=== PATIENT | male | born 1950 | race Caucasian/White ===

== ENCOUNTER 2016-02-16 00:08 | Inpatient (IN) | payer MEDICAID ==
[~2016-02-16] VITALS: Ht 177.8 cm; Wt 75.3 kg
[2016-02-16] VITALS (42 sets, daily range): BP systolic 133–186; BP diastolic 70–107
[2016-02-16] MEDS ORDERED: IV SET PRIMARY PUMP SET 1 EA INFUS.SET MC ONE (00:23)
[2016-02-16] MEDS ORDERED: NTG 50 MG/D5W250 ML BOTTL 250 ML IV ONE ×2 (00:23→01:00)
[2016-02-16 00:55] LABS: BASOPHILS % (AUTO) 0.3 % (0.0-2.0); DIFF TOTAL % 100 %; EOSINOPHILS # (AUTO) 0.3 /CMM (0.0-0.7); EOSINOPHILS % (AUTO) 2.6 % (0.0-6.0); HEMATOCRIT 26 % (39-51); HEMOGLOBIN 8.5 g/dL (13.5-17.5); LYMPHOCYTES # (AUTO) 1.6 /CMM (0.8-4.8); LYMPHOCYTES % (AUTO) 16.9 % (20.0-44.0); MEAN CORPUSCULAR HEMOGLOBIN 30 PG (26.0-33.0); MEAN CORPUSCULAR HGB CONC 33 g/dl (31.0-36.0); MEAN CORPUSCULAR VOLUME 92 fL (80-96); MONOCYTES # (AUTO) 0.6 /CMM (0.1-1.30); MONOCYTES % (AUTO) 6.3 % (2.0-12.0); NEUTROPHILS # (AUTO) 7.2 /CMM (1.8-8.9); NEUTROPHILS % (AUTO) 73.9 % (43.0-81.0); PLATELET COUNT (AUTO) 269 /CMM (150-450); RED BLOOD CELL COUNT(AUTO) 2.82 MIL/uL (4.5-6.0); WHITE BLOOD COUNT (AUTO) 9.7 K/uL (4.3-11.0)
[2016-02-16 01:09] LABS: INR 1.09 (0.87-1.13); PROTHROMBIN TIME 11.8 SECS (9.5-12.7)
[2016-02-16 01:11] LABS: LACTIC ACID 0.8 mmol/L (0.4-2.0)
[2016-02-16 01:13] LABS: TROPONIN I < 0.017 ng/mL (0.00-0.056)
[2016-02-16 01:17] LABS: ALANINE AMINOTRANSFERASE 20 U/L (12-78); ALBUMIN 3.6 g/dL (3.4-5.0); ANION GAP 18 (5-14); ASPARTATE AMINOTRANSFERASE 8 U/L (15-37); BILIRUBIN,DIRECT 0.1 mg/dL (0.0-0.2); BILIRUBIN,TOTAL 0.4 mg/dL (0.2-1.0); CARBON DIOXIDE 30 mmol/L (21-32); CHLORIDE 104 mmol/L (98-107); GFR 3 mL/min (>60); GLUCOSE 118 mg/dL (74-106); INDIRECT BILIRUBIN 0.3 mg/dL (0.0-1.1); POTASSIUM 5.2 mmol/L (3.5-5.1); SODIUM SERUM 146 mmol/L (136-145); TOTAL PROTEIN, SERUM 7.7 g/dL (6.4-8.2)
[2016-02-16] MEDS ORDERED: FUROSEMIDE 40 MG/4 ML VIAL ONE (01:22)
[2016-02-16 01:29] LABS: CREATININE 14.4 mg/dL (0.6-1.3); UREA NITROGEN, BLOOD 107 mg/dL (7-18)
[2016-02-16] MEDS ORDERED: FUROSEMIDE 40 MG/4 ML VIAL IV ONE (01:30)
[2016-02-16] MEDS ORDERED: ZOLPIDEM TARTRATE 5 MG TABLET PO PRN (02:30)
[2016-02-16] MEDS ORDERED: Z GUARD REMEDY 2 OZ OINT TP PRN (02:30)
[2016-02-16] MEDS ORDERED: ACETAMINOPHEN 325 MG TABLET PO PRN (02:30)
[2016-02-16] MEDS ORDERED: MORPHINE SULFATE INJ 2 MG/ML DISP.SYRIN IV PRN (02:30)
[2016-02-16] MEDS ORDERED: ONDANSETRON HCL/PF 4 MG/2 ML VIAL IVP PRN (02:30)
[2016-02-16] MEDS ORDERED: MAGNESIUM HYDROXIDE 30 ML UDC PO PRN (02:30)
[2016-02-16] MEDS ORDERED: MAG HYDROX/AL HYDROX/SIMETH 30 ML UDC PO PRN (02:30)
[2016-02-16] MEDS ORDERED: HYDROCODONE/APAP 5/325MG 1 EACH TABLET PO PRN (02:30)
[2016-02-16] MEDS ORDERED: NTG 50 MG/D5W250 ML BOTTL 250 ML IV PRN ×2 (02:30→04:30)
[2016-02-16 02:51] LABS: ABG BASE EXCESS -4.1 mmol/L; ABG HCO3 21.6 mmol/L; ABG PCO2 42.5 mmHg (35.0-45.0); ABG PH 7.324 (7.350-7.450); ABG PO2 226.5 mmHg (75.0-100.0); ABG TOTAL HEMOGLOBIN 7.6 G/dL (13.5-18.0); ALLEN TEST Pass; AaDO2 82.2 mmHg
[2016-02-16] MEDS ORDERED: ACETAMINOPHEN 325 MG TABLET ONE (04:37)
[2016-02-16 05:09] LABS: BASOPHILS % (AUTO) 0.3 % (0.0-2.0); DIFF TOTAL % 100 %; EOSINOPHILS # (AUTO) 0.1 /CMM (0.0-0.7); EOSINOPHILS % (AUTO) 1.4 % (0.0-6.0); HEMATOCRIT 23 % (39-51); HEMOGLOBIN 7.5 g/dL (13.5-17.5); LYMPHOCYTES # (AUTO) 0.8 /CMM (0.8-4.8); LYMPHOCYTES % (AUTO) 8.7 % (20.0-44.0); MEAN CORPUSCULAR HEMOGLOBIN 30 PG (26.0-33.0); MEAN CORPUSCULAR HGB CONC 33 g/dl (31.0-36.0); MEAN CORPUSCULAR VOLUME 90 fL (80-96); MONOCYTES # (AUTO) 0.5 /CMM (0.1-1.30); MONOCYTES % (AUTO) 5.6 % (2.0-12.0); PLATELET COUNT (AUTO) 204 /CMM (150-450); RED BLOOD CELL COUNT(AUTO) 2.51 MIL/uL (4.5-6.0); WHITE BLOOD COUNT (AUTO) 9.5 K/uL (4.3-11.0)
[2016-02-16 05:17] LABS: ALBUMIN 3.2 g/dL (3.4-5.0); BILIRUBIN,TOTAL 0.3 mg/dL (0.2-1.0); PHOSPHORUS 7.2 mg/dL (2.5-4.9); TOTAL PROTEIN, SERUM 6.9 g/dL (6.4-8.2)
[2016-02-16 05:32] LABS: KETONES,URINE NEGATIVE (NEGATIVE); LEUKOCYTE ESTERASE ,URINE NEGATIVE (NEGATIVE)
[2016-02-16 05:37] LABS: CREATININE 14.3 mg/dL (0.6-1.3); POTASSIUM 6.7 mmol/L (3.5-5.1)
[2016-02-16 05:41] LABS: ADD UA MICROSCOPIC YES
[2016-02-16 05:44] LABS: ADD URINE CULTURE NO; WBC,URINE 0-2 /HPF (0-3)
[2016-02-16] MEDS: PANTOPRAZOLE 40 MG VIAL IV SCH (08:23)
[2016-02-16] MEDS ORDERED: CELLULOSE,OXIDIZED 1 EACH EACH MC ONE (08:30)
[2016-02-16] MEDS ORDERED: FUROSEMIDE 40 MG/4 ML VIAL IV SCH (09:00)
[2016-02-16] MEDS: hydrALAZINE HCL 25 MG TABLET PO SCH ×3 (11:10→21:23)
[2016-02-16] MEDS: VIT B CMPLX 3/FA/VIT C/BIOTIN 1 TAB TABLET PO SCH (11:10)
[2016-02-16] MEDS ORDERED: EPOETIN ALFA (10,000 UNIT) 10,000 UNIT/ML VIAL SQ ONE (12:00)
[2016-02-16] MEDS: AMLODIPINE BESYLATE 10 MG TABLET PO SCH (14:36)
[2016-02-17] VITALS: BP 159/87
[2016-02-17 04:00] VITALS: BP 154/82
[2016-02-17] MEDS: hydrALAZINE HCL 25 MG TABLET PO SCH ×2 (05:00→12:19)
[2016-02-17 05:36] LABS: BASOPHILS % (AUTO) 0.4 % (0.0-2.0); DIFF TOTAL % 100 %; EOSINOPHILS # (AUTO) 0.2 /CMM (0.0-0.7); EOSINOPHILS % (AUTO) 2.2 % (0.0-6.0); HEMATOCRIT 24 % (39-51); LYMPHOCYTES % (AUTO) 13.6 % (20.0-44.0); MEAN CORPUSCULAR HEMOGLOBIN 31 PG (26.0-33.0); MEAN CORPUSCULAR HGB CONC 34 g/dl (31.0-36.0); MEAN CORPUSCULAR VOLUME 91 fL (80-96); MONOCYTES # (AUTO) 0.6 /CMM (0.1-1.30); NEUTROPHILS # (AUTO) 5.7 /CMM (1.8-8.9); NEUTROPHILS % (AUTO) 75.8 % (43.0-81.0); PLATELET COUNT (AUTO) 215 /CMM (150-450); RED BLOOD CELL COUNT(AUTO) 2.63 MIL/uL (4.5-6.0); WHITE BLOOD COUNT (AUTO) 7.5 K/uL (4.3-11.0)
[2016-02-17 05:43] LABS: PHOSPHORUS 6.8 mg/dL (2.5-4.9); POTASSIUM 4.8 mmol/L (3.5-5.1)
[2016-02-17 05:44] LABS: CREATININE 10.7 mg/dL (0.6-1.3)
[2016-02-17 08:00] VITALS: BP 150/73
[2016-02-17] MEDS: PANTOPRAZOLE 40 MG VIAL IV SCH (08:49)
[2016-02-17] MEDS: VIT B CMPLX 3/FA/VIT C/BIOTIN 1 TAB TABLET PO SCH (08:49)
[2016-02-17] MEDS: AMLODIPINE BESYLATE 10 MG TABLET PO SCH (08:50)
[2016-02-17 12:19] VITALS: BP 156/78
[2016-02-17] MEDS ORDERED: SEVELAMER CARBONATE 800 MG TABLET PO SCH (13:00)
== END 2016-02-17 16:20 | disposition home or self-care (01) | DRG 194 ==
LOC: ER 00:10 → ICU 01:34 → MED 18:28
PROVIDERS: ADMIT Family Medicine; ATTEND Family Medicine
PROC: 5A09357 Assistance with Respiratory Ventilation, Less than 24 Consecutive Hours, Continuous Positive Airway Pressure (ICD-10-PCS; principal; 2016-02-16)
PROC: 5A1D00Z (ICD-10-PCS; principal; 2016-02-16)
DX: I13.2 Hypertensive heart and chronic kidney disease with heart failure and with stage 5 chronic kidney disease, or end stage renal disease (principal); J96.01 Acute respiratory failure with hypoxia; G93.41 Metabolic encephalopathy; E87.0 Hyperosmolality and hypernatremia; N18.6 End stage renal disease; I50.33 Acute on chronic diastolic (congestive) heart failure; Z99.2 Dependence on renal dialysis; K21.9 Gastro-esophageal reflux disease without esophagitis; Z85.828 Personal history of other malignant neoplasm of skin; D64.9 Anemia, unspecified; E87.5 Hyperkalemia; F17.200 Nicotine dependence, unspecified, uncomplicated; E83.9 Disorder of mineral metabolism, unspecified; I16.0 Hypertensive urgency
CPT/HCPCS: 36415; 36600; 71010-TC; 80048-TC; 80053-TC; 80076-TC; 81000-TC; 82803-TC; 83605-TC; 83735-TC; 83880; 84100-TC; 84132-TC; 84484-TC; 85025-TC; 85730-TC; 87040-TC; 87081-TC; 93307-TC; 94660; A4606; C9113; J0885; J1940; J3490; Z7610

== ENCOUNTER 2016-04-04 19:30 | Inpatient (IN) | payer MEDICAID ==
[2016-04-04] MEDS ORDERED: IOHEXOL-350 100 ML VIAL IV ONE (21:23)
[2016-04-04] MEDS ORDERED: IV NS 0.9% 250 ML IV ONE (21:23)
[2016-04-05] MEDS ORDERED: CLONIDINE HCL 0.1 MG TABLET PO PRN (02:30)
[2016-04-05] MEDS ORDERED: ACETAMINOPHEN 325 MG TABLET PO PRN (02:30)
[2016-04-05] MEDS ORDERED: ZOLPIDEM TARTRATE 5 MG TABLET PO PRN (02:30)
[2016-04-05] MEDS ORDERED: HYDROCODONE/APAP 5/325MG 1 EACH TABLET ONE (04:27)
[2016-04-05] MEDS: HYDROCODONE/APAP 5/325MG 1 EACH TABLET PO PRN ×2 (04:31→08:41)
[2016-04-05] MEDS ORDERED: PANTOPRAZOLE 40 MG TABLET.DR PO SCH (07:30)
[2016-04-05] MEDS ORDERED: HYDR-552 PO (08:20)
[2016-04-05] MEDS ORDERED: AMLODIPINE BESYLATE 5 MG TABLET PO SCH (09:00)
[2016-04-05] MEDS ORDERED: ASPIRIN 81 MG TAB.CHEW PO SCH (09:00)
[2016-04-05] MEDS ORDERED: EPOETIN ALFA (10,000 UNIT) 10,000 UNIT/ML VIAL IV ONE (09:30)
== END 2016-04-05 09:30 | disposition home or self-care (01) | DRG 203 ==
DX: R07.89 Other chest pain (principal); I12.0 Hypertensive chronic kidney disease with stage 5 chronic kidney disease or end stage renal disease; N18.6 End stage renal disease; F17.210 Nicotine dependence, cigarettes, uncomplicated; Z99.2 Dependence on renal dialysis; D63.1 Anemia in chronic kidney disease

== ENCOUNTER 2016-05-21 03:59 | Emergency (ER) | payer MEDICAID ==
[~2016-05-21] VITALS: Ht 172.7 cm; Wt 77.1 kg
[~2016-05-21 03:59] MED LIST: HYDR-552 PO
[2016-05-21] MEDS ORDERED: HYDROCODONE/APAP 5/325MG 1 EACH TABLET ONE (04:34)
[2016-05-21] MEDS ORDERED: HYDROCODONE/APAP 5/325MG 1 EACH TABLET PO ONE (05:00)
[2016-05-21] MEDS ORDERED: CLONIDINE HCL 0.1 MG TABLET ONE (05:05)
[2016-05-21 05:23] VITALS: BP 167/90
[2016-05-21] MEDS ORDERED: CLONIDINE HCL 0.1 MG TABLET PO ONE (05:30)
== END 2016-05-21 05:26 | disposition home or self-care (01) ==
LOC: ER 03:59
DX: R51 Headache (principal); I12.0 Hypertensive chronic kidney disease with stage 5 chronic kidney disease or end stage renal disease; N18.6 End stage renal disease; C44.90 Unspecified malignant neoplasm of skin, unspecified; C16.9 Malignant neoplasm of stomach, unspecified; Z98.890 Other specified postprocedural states; Z99.2 Dependence on renal dialysis
CPT/HCPCS: 99283; A4606; Z7610

== ENCOUNTER 2016-06-11 20:57 | Emergency (ER) | payer MEDICAID ==
[~2016-06-11] VITALS: Ht 170.2 cm; Wt 77.1 kg
--- NOTE | 2016-06-11 21:21 | NUR ---
ambulatory w/ steady gait to rm, resp even & unlabored, nad noted, refusing to be in gown. Pending further evsintia DARNELL.
--- NOTE | 2016-06-11 21:32 | NUR ---
KRYSTINA Purdy at bedside for eval.
--- NOTE | 2016-06-11 23:00 | NUR ---
Sent to XR.
--- NOTE | 2016-06-11 23:29 | NUR ---
pt back fr XR.
--- NOTE | 2016-06-12 00:29 | NUR ---
CALLED FERNANDO FOR F/U ON RESULTS
--- NOTE | 2016-06-12 00:33 | NUR ---
pt ambulatory w/ steady gait to nurse's station, updated on status. Awaiting test results. pt refusing to wait for test results, states "I'm fine. Nothing's broken. I just want to go home." KRYSTINA Purdy talking w/ pt.
--- NOTE | 2016-06-12 00:48 | NUR ---
Patient discharged to home in stable condition. Patient refusing to wait for discharge papers, given verbal discharge instructions. Patient verbalizes understanding of instruction.
[2016-06-12 00:55] VITALS: BP 124/74
== END 2016-06-12 00:56 | disposition home or self-care (01) ==
LOC: ER 21:01
DX: S39.92XA Unspecified injury of lower back, initial encounter (principal); V43.52XA Car driver injured in collision with other type car in traffic accident, initial encounter; Y93.89 Activity, other specified; Y92.488 Other paved roadways as the place of occurrence of the external cause; Y99.8 Other external cause status
CPT/HCPCS: 72050; 72080; 99284; A4606; Z7610

== ENCOUNTER 2016-08-05 22:07 | Emergency (ER) | payer MEDICAID ==
[~2016-08-05] VITALS: Ht 170.2 cm; Wt 77.1 kg
[2016-08-05] MEDS ORDERED: CLONIDINE HCL 0.1 MG TABLET PO ONE (22:30)
--- NOTE | 2016-08-05 22:36 | NUR ---
DR ALBERT AT BEDSIDE FOR EVALUATION
[2016-08-05] MEDS ORDERED: CLONIDINE HCL 0.1 MG TABLET ONE (22:42)
[2016-08-05] MEDS ORDERED: ONDANSETRON 4 MG TAB.RAPDIS ONE (22:43)
[2016-08-05] MEDS ORDERED: HYDROMORPHONE INJ 2 MG/ML DISP.SYRIN ONE (22:43)
[2016-08-05] MEDS ORDERED: ONDANSETRON 4 MG TAB.RAPDIS SL ONE (23:00)
[2016-08-05] MEDS ORDERED: HYDROMORPHONE INJ 2 MG/ML DISP.SYRIN IM ONE (23:00)
--- NOTE | 2016-08-05 23:09 | NUR ---
PT CAME FROM HOME W/ CO HEAD ACHE 10/19 STATES THAT SBP HAS BEEN HIGH SINCE YESTERDAY. STATES THAT SBP 230 @1700 AFTER HD. PT CO THROBBING HEADACHE OF 10/19. DENIES ANY CP N/V AT THIS TIME. PEERLA. PUT ON MONITOR.
[2016-08-05 23:31] LABS: MAGNESIUM 2.5 mg/dL (1.8-2.4); PHOSPHORUS 6.8 mg/dL (2.5-4.9)
[2016-08-05 23:35] LABS: ALBUMIN 3.3 g/dL (3.4-5.0); BILIRUBIN,DIRECT 0.1 mg/dL (0.0-0.2); BILIRUBIN,TOTAL 0.4 mg/dL (0.2-1.0); POTASSIUM 4.9 mmol/L (3.5-5.1); TOTAL PROTEIN, SERUM 7.4 g/dL (6.4-8.2)
[2016-08-05 23:37] LABS: CREATININE 10.4 mg/dL (0.6-1.3)
[2016-08-05 23:54] LABS: WHITE BLOOD COUNT (AUTO) 6.8 K/uL (4.3-11.0)
[2016-08-05 23:55] LABS: HEMATOCRIT 32 % (39-51); HEMOGLOBIN 10.4 g/dL (13.5-17.5); MEAN CORPUSCULAR HEMOGLOBIN 28 PG (26.0-33.0); MEAN CORPUSCULAR HGB CONC 33 g/dl (31.0-36.0); MEAN CORPUSCULAR VOLUME 87 fL (80-96); RDW COEFFICIENT OF VARIATION 15.9 (11.5-15.0); RED BLOOD CELL COUNT(AUTO) 3.65 MIL/uL (4.5-6.0)
[2016-08-05 23:56] LABS: BASOPHILS % (AUTO) 0.3 % (0.0-2.0); EOSINOPHILS % (AUTO) 1.9 % (0.0-6.0); LYMPHOCYTES % (AUTO) 8.6 % (20.0-44.0); MONOCYTES % (AUTO) 5.6 % (2.0-12.0); NEUTROPHILS % (AUTO) 83.9 % (43.0-81.0); PLATELET COUNT (AUTO) 208 /CMM (150-450)
[2016-08-06 00:08] LABS: INR 1.06 (0.87-1.13); PROTHROMBIN TIME 11.2 SECS (9.5-12.7)
--- NOTE | 2016-08-06 01:49 | NUR ---
Patient discharged to home in stable condition. Written and verbal after care instructions given. Patient verbalizes understanding of instruction.
[2016-08-06 02:01] VITALS: BP 173/98
== END 2016-08-06 02:02 | disposition home or self-care (01) ==
LOC: ER 22:11
DX: I12.9 Hypertensive chronic kidney disease with stage 1 through stage 4 chronic kidney disease, or unspecified chronic kidney disease (principal); N18.9 Chronic kidney disease, unspecified; R51 Headache; Z99.2 Dependence on renal dialysis
CPT/HCPCS: 36415; 80048-TC; 80076-TC; 83735-TC; 84100-TC; 85025-TC; 85730-TC; A4606; J1170; Q0162; Z7610

== ENCOUNTER 2016-08-17 09:12 | Inpatient (IN) | payer MEDICAID ==
[~2016-08-17] VITALS: Ht 175.3 cm; Wt 77.1 kg
[2016-08-17] MEDS ORDERED: ASPIRIN 81 MG TAB.CHEW ONE (09:51)
[2016-08-17] MEDS ORDERED: ASPIRIN 81 MG TAB.CHEW PO ONE (10:00)
[2016-08-17 10:19] LABS: BASOPHILS % (AUTO) 0.1 % (0.0-2.0); EOSINOPHILS # (AUTO) 0.2 /CMM (0.0-0.7); EOSINOPHILS % (AUTO) 2.1 % (0.0-6.0); HEMATOCRIT 35 % (39-51); HEMOGLOBIN 11.4 g/dL (13.5-17.5); LYMPHOCYTES # (AUTO) 0.9 /CMM (0.8-4.8); LYMPHOCYTES % (AUTO) 10.7 % (20.0-44.0); MEAN CORPUSCULAR HEMOGLOBIN 29 PG (26.0-33.0); MEAN CORPUSCULAR HGB CONC 33 g/dl (31.0-36.0); MEAN CORPUSCULAR VOLUME 88 fL (80-96); MONOCYTES # (AUTO) 0.7 /CMM (0.1-1.30); MONOCYTES % (AUTO) 7.7 % (2.0-12.0); NEUTROPHILS # (AUTO) 6.9 /CMM (1.8-8.9); NEUTROPHILS % (AUTO) 79.4 % (43.0-81.0); PLATELET COUNT (AUTO) 253 /CMM (150-450); RDW COEFFICIENT OF VARIATION 15.7 (11.5-15.0); RED BLOOD CELL COUNT(AUTO) 3.94 MIL/uL (4.5-6.0); WHITE BLOOD COUNT (AUTO) 8.7 K/uL (4.3-11.0)
[2016-08-17 10:35] LABS: INR 1.11 (0.87-1.13); PROTHROMBIN TIME 11.6 SECS (9.5-12.7)
[2016-08-17 10:38] LABS: ALANINE AMINOTRANSFERASE 10 U/L (12-78); ALBUMIN 3.4 g/dL (3.4-5.0); ALKALINE PHOSPHATASE 254 U/L (46-116); ASPARTATE AMINOTRANSFERASE 5 U/L (15-37); BILIRUBIN,DIRECT 0.1 mg/dL (0.0-0.2); BILIRUBIN,TOTAL 0.5 mg/dL (0.2-1.0); CALCIUM, SERUM 9.8 mg/dL (8.5-10.1); CARBON DIOXIDE 26 mmol/L (21-32); CHLORIDE 101 mmol/L (98-107); GLUCOSE 100 mg/dL (74-106); SODIUM SERUM 138 mmol/L (136-145); TOTAL PROTEIN, SERUM 7.9 g/dL (6.4-8.2)
[2016-08-17 10:40] LABS: TROPONIN I < 0.017 ng/mL (0.00-0.056)
[2016-08-17 10:41] LABS: CREATININE 10.4 mg/dL (0.6-1.3); UREA NITROGEN, BLOOD 85 mg/dL (7-18)
[2016-08-17] MEDS ORDERED: FUROSEMIDE 40 MG/4 ML VIAL ONE (12:04)
[2016-08-17] MEDS ORDERED: SODIUM POLYSTYRENE SULFONATE 15 G/60 ML BOTTLE ONE (12:04)
[2016-08-17] MEDS: SODIUM POLYSTYRENE SULFONATE 15 G/60 ML BOTTLE RC ONE ×2 (12:15→12:29)
[2016-08-17] MEDS ORDERED: CINA90TA PO (12:17)
[2016-08-17] MEDS ORDERED: FOLI0.8T2 PO (12:17)
[2016-08-17] MEDS ORDERED: VALS160T2 PO (12:17)
[2016-08-17] MEDS ORDERED: PROP40TA7 PO (12:17)
[2016-08-17] MEDS ORDERED: AMLO10TA2 PO (12:17)
[2016-08-17] MEDS ORDERED: DOXA4TAB3 PO (12:17)
[2016-08-17] MEDS ORDERED: METO100T3 PO (12:17)
[2016-08-17] MEDS ORDERED: FUROSEMIDE 40 MG/4 ML VIAL IV ONE (12:30)
[2016-08-17] MEDS ORDERED: ACETAMINOPHEN 325 MG TABLET PO PRN (13:00)
[2016-08-17] MEDS ORDERED: MAGNESIUM HYDROXIDE 30 ML UDC PO PRN (13:00)
[2016-08-17] MEDS ORDERED: ONDANSETRON HCL/PF 4 MG/2 ML VIAL IVP PRN (13:00)
[2016-08-17] MEDS ORDERED: MAG HYDROX/AL HYDROX/SIMETH 30 ML UDC PO PRN (13:00)
[2016-08-17 16:00] VITALS: BP_SYST 160; BP_SYST 99; BP_DIAS 72; BP_DIAS 85
[2016-08-17] MEDS: PROPRANOLOL HCL 40 MG TABLET PO SCH (16:09)
[2016-08-17] MEDS: HYDROCODONE/APAP 5/325MG 1 EACH TABLET PO PRN (16:10)
[2016-08-17] MEDS: hydrALAZINE HCL 10 MG TABLET PO PRN (18:59)
[2016-08-17 20:00] VITALS: BP 152/75
[2016-08-17 20:36] VITALS: BP 152/75
[2016-08-17] MEDS: METOPROLOL TARTRATE 50 MG TABLET PO SCH (21:00)
[2016-08-17] MEDS: DOXAZOSIN MESYLATE (4 MG) 4 MG TABLET PO SCH (21:31)
[2016-08-17] MEDS: AMLODIPINE BESYLATE 10 MG TABLET PO SCH (21:31)
[2016-08-18] VITALS (10 sets, daily range): BP systolic 138–168; BP diastolic 77–95
[2016-08-18 06:26] LABS: BASOPHILS % (AUTO) 0.6 % (0.0-2.0); EOSINOPHILS # (AUTO) 0.2 /CMM (0.0-0.7); EOSINOPHILS % (AUTO) 2.9 % (0.0-6.0); HEMATOCRIT 31 % (39-51); LYMPHOCYTES % (AUTO) 16.2 % (20.0-44.0); MEAN CORPUSCULAR HEMOGLOBIN 29 PG (26.0-33.0); MEAN CORPUSCULAR HGB CONC 33 g/dl (31.0-36.0); MEAN CORPUSCULAR VOLUME 88 fL (80-96); MONOCYTES # (AUTO) 0.8 /CMM (0.1-1.30); NEUTROPHILS # (AUTO) 4.2 /CMM (1.8-8.9); NEUTROPHILS % (AUTO) 67.3 % (43.0-81.0); PLATELET COUNT (AUTO) 198 /CMM (150-450); RDW COEFFICIENT OF VARIATION 15.9 (11.5-15.0); RED BLOOD CELL COUNT(AUTO) 3.48 MIL/uL (4.5-6.0); WHITE BLOOD COUNT (AUTO) 6.2 K/uL (4.3-11.0)
[2016-08-18 06:49] LABS: CALCIUM, SERUM 9.4 mg/dL (8.5-10.1); MAGNESIUM 2.4 mg/dL (1.8-2.4); POTASSIUM 4.5 mmol/L (3.5-5.1)
[2016-08-18 06:51] LABS: THYROID STIMULATING HORMONE 0.332 uIU/mL (0.358-3.74)
[2016-08-18 06:55] LABS: CREATININE 9.8 mg/dL (0.6-1.3); PHOSPHORUS 8.7 mg/dL (2.5-4.9)
[2016-08-18] MEDS: PANTOPRAZOLE 40 MG TABLET.DR PO SCH (08:24)
[2016-08-18] MEDS: PROPRANOLOL HCL 40 MG TABLET PO SCH (08:24)
[2016-08-18] MEDS: VALSARTAN 80 MG TABLET PO SCH (08:24)
[2016-08-18] MEDS: VIT B CMPLX 3/FA/VIT C/BIOTIN 1 TAB TABLET PO SCH (08:24)
[2016-08-18] MEDS: CINACALCET HCL 30 MG TABLET PO SCH (08:24)
[2016-08-18] MEDS: METOPROLOL TARTRATE 50 MG TABLET PO SCH (09:00)
[2016-08-18] MEDS: ASPIRIN EC 81 MG TABLET.DR PO SCH (12:24)
[2016-08-18] MEDS: SEVELAMER CARBONATE 800 MG TABLET PO SCH ×2 (12:24→17:28)
[2016-08-18] MEDS: HYDROCODONE/APAP 5/325MG 1 EACH TABLET PO PRN (12:51)
[2016-08-18] MEDS: hydrALAZINE HCL 10 MG TABLET PO PRN (16:28)
[2016-08-18] MEDS: CARVEDILOL 12.5 MG TABLET PO SCH (21:08)
[2016-08-18] MEDS: AMLODIPINE BESYLATE 10 MG TABLET PO SCH (21:09)
[2016-08-18] MEDS: DOXAZOSIN MESYLATE (4 MG) 4 MG TABLET PO SCH (21:09)
[2016-08-18] MEDS ORDERED: ATORVASTATIN 10 MG TABLET PO SCH (22:00)
[2016-08-19 06:42] LABS: BASOPHILS % (AUTO) 0.7 % (0.0-2.0); EOSINOPHILS # (AUTO) 0.2 /CMM (0.0-0.7); EOSINOPHILS % (AUTO) 2.8 % (0.0-6.0); HEMATOCRIT 30 % (39-51); HEMOGLOBIN 9.8 g/dL (13.5-17.5); LYMPHOCYTES # (AUTO) 1.1 /CMM (0.8-4.8); LYMPHOCYTES % (AUTO) 14.4 % (20.0-44.0); MEAN CORPUSCULAR HEMOGLOBIN 29 PG (26.0-33.0); MEAN CORPUSCULAR HGB CONC 33 g/dl (31.0-36.0); MEAN CORPUSCULAR VOLUME 88 fL (80-96); MONOCYTES # (AUTO) 0.7 /CMM (0.1-1.30); MONOCYTES % (AUTO) 9.2 % (2.0-12.0); NEUTROPHILS # (AUTO) 5.3 /CMM (1.8-8.9); NEUTROPHILS % (AUTO) 72.9 % (43.0-81.0); PLATELET COUNT (AUTO) 198 /CMM (150-450); RDW COEFFICIENT OF VARIATION 15.5 (11.5-15.0); RED BLOOD CELL COUNT(AUTO) 3.37 MIL/uL (4.5-6.0); WHITE BLOOD COUNT (AUTO) 7.3 K/uL (4.3-11.0)
[2016-08-19 07:21] LABS: CALCIUM, SERUM 8.6 mg/dL (8.5-10.1); MAGNESIUM 2.4 mg/dL (1.8-2.4); POTASSIUM 5.3 mmol/L (3.5-5.1)
[2016-08-19 08:00] VITALS: BP 158/85
[2016-08-19] MEDS: ASPIRIN EC 81 MG TABLET.DR PO SCH (08:28)
[2016-08-19] MEDS: CINACALCET HCL 30 MG TABLET PO SCH (08:28)
[2016-08-19] MEDS: SEVELAMER CARBONATE 800 MG TABLET PO SCH (08:28)
[2016-08-19] MEDS: VIT B CMPLX 3/FA/VIT C/BIOTIN 1 TAB TABLET PO SCH (08:28)
[2016-08-19] MEDS: PANTOPRAZOLE 40 MG TABLET.DR PO SCH (08:28)
[2016-08-19] MEDS: VALSARTAN 80 MG TABLET PO SCH (08:28)
[2016-08-19 08:29] VITALS: BP 158/85
[2016-08-19] MEDS: CARVEDILOL 12.5 MG TABLET PO SCH (08:29)
[2016-08-19 09:04] LABS: CREATININE 12.1 mg/dL (0.6-1.3); PHOSPHORUS 8.7 mg/dL (2.5-4.9)
[2016-08-19] MEDS ORDERED: ASPI-991 PO (09:18)
[2016-08-19] MEDS ORDERED: CARV12.52 PO (09:18)
[2016-08-19] MEDS ORDERED: ATOR10TA PO (09:18)
== END 2016-08-19 11:45 | disposition home or self-care (01) | DRG 198 ==
LOC: ER 09:14 → TELE 12:35 → MED 08-18 11:51
PROVIDERS: ADMIT Nurse Practitioner Acute Care; ATTEND Nurse Practitioner Acute Care
PROC: 5A1D00Z (ICD-10-PCS; principal; 2016-08-17)
DX: R07.89 Other chest pain (principal); I25.10 Atherosclerotic heart disease of native coronary artery without angina pectoris; I50.33 Acute on chronic diastolic (congestive) heart failure; N18.6 End stage renal disease; E83.39 Other disorders of phosphorus metabolism; I13.2 Hypertensive heart and chronic kidney disease with heart failure and with stage 5 chronic kidney disease, or end stage renal disease; E87.5 Hyperkalemia; Z99.2 Dependence on renal dialysis; Z83.3 Family history of diabetes mellitus; Z82.49 Family history of ischemic heart disease and other diseases of the circulatory system; D63.8 Anemia in other chronic diseases classified elsewhere; Z85.51 Personal history of malignant neoplasm of bladder; Z85.46 Personal history of malignant neoplasm of prostate
CPT/HCPCS: 36415; 71010-TC; 80048-TC; 80061-TC; 80076-TC; 83735-TC; 84100-TC; 84132-TC; 84439-TC; 84443-TC; 84484-TC; 85025-TC; 85730-TC; 87081-TC; 90935-TC; 97001-TC; A4606; J1940; Z7610

== ENCOUNTER 2016-10-27 21:41 | Emergency (ER) | payer MEDICAID ==
[~2016-10-27] VITALS: Ht 170.2 cm; Wt 77.1 kg
[~2016-10-27 21:41] MED LIST changes: +AMLO10TA2 PO; +ASPI-991 PO; +ATOR10TA PO; +CARV12.52 PO; +CINA90TA PO; +DOXA4TAB3 PO; +FOLI0.8T2 PO; -HYDR-552 PO; +PROP40TA7 PO; +VALS160T2 PO
[2016-10-27] MEDS ORDERED: hydrALAZINE HCL IV 20 MG VIAL ONE (22:29)
[2016-10-27] MEDS ORDERED: hydrALAZINE HCL IV 20 MG VIAL IV ONE (22:30)
--- NOTE | 2016-10-27 22:30 | NUR ---
RN AT BEDSIDE TO MEDICATE PT.
[2016-10-27 22:41] LABS: BASOPHILS % (AUTO) 0.3 % (0.0-2.0); EOSINOPHILS # (AUTO) 0.3 /CMM (0.0-0.7); EOSINOPHILS % (AUTO) 3.2 % (0.0-6.0); HEMATOCRIT 25 % (39-51); LYMPHOCYTES # (AUTO) 1.2 /CMM (0.8-4.8); LYMPHOCYTES % (AUTO) 12.4 % (20.0-44.0); MEAN CORPUSCULAR HEMOGLOBIN 29 PG (26.0-33.0); MEAN CORPUSCULAR HGB CONC 33 g/dl (31.0-36.0); MEAN CORPUSCULAR VOLUME 90 fL (80-96); MONOCYTES # (AUTO) 0.7 /CMM (0.1-1.30); NEUTROPHILS # (AUTO) 7.3 /CMM (1.8-8.9); NEUTROPHILS % (AUTO) 77.1 % (43.0-81.0); PLATELET COUNT (AUTO) 257 /CMM (150-450); RDW COEFFICIENT OF VARIATION 14.3 (11.5-15.0); RED BLOOD CELL COUNT(AUTO) 2.71 MIL/uL (4.5-6.0); WHITE BLOOD COUNT (AUTO) 9.4 K/uL (4.3-11.0)
[2016-10-27 22:50] LABS: CALCIUM, SERUM 9.7 mg/dL (8.5-10.1); CARBON DIOXIDE 26 mmol/L (21-32); CHLORIDE 106 mmol/L (98-107); GLUCOSE 96 mg/dL (74-106); POTASSIUM 5.5 mmol/L (3.5-5.1); SODIUM SERUM 143 mmol/L (136-145)
[2016-10-27 22:52] LABS: TROPONIN I < 0.017 ng/mL (0.00-0.056)
[2016-10-27 22:53] LABS: CREATININE 11.7 mg/dL (0.6-1.3); UREA NITROGEN, BLOOD 90 mg/dL (7-18)
[2016-10-27 23:08] LABS: INR 1.04 (0.87-1.13); PROTHROMBIN TIME 11.1 SECS (9.5-12.7)
--- NOTE | 2016-10-27 23:39 | NUR ---
Patient discharged to home in stable condition. Written and verbal after care instructions given. Patient verbalizes understanding of instruction. ambulatory with a steady gait noted. pt aaox4 no acute distress noted, resp even ans unlabored. IV removed. Catheter intact and site benign. Pressure and 4x4 applied to site. No bleeding noted. pt at bedside to take pt home.
[2016-10-27 23:48] VITALS: BP 182/92
== END 2016-10-27 23:48 | disposition home or self-care (01) ==
LOC: ER 21:45
DX: I12.0 Hypertensive chronic kidney disease with stage 5 chronic kidney disease or end stage renal disease (principal); N18.6 End stage renal disease; D63.1 Anemia in chronic kidney disease; Z79.82 Long term (current) use of aspirin; Z85.51 Personal history of malignant neoplasm of bladder; Z85.820 Personal history of malignant melanoma of skin; Z99.2 Dependence on renal dialysis
CPT/HCPCS: 36415; 71010-TC; 80048-TC; 84484-TC; 85025-TC; 85730-TC; A4606; J0360; Z7610

== ENCOUNTER 2016-11-15 07:46 | Inpatient (IN) | payer MEDICAID ==
[~2016-11-15] VITALS: Ht 172.7 cm; Wt 77.1 kg
--- NOTE | 2016-11-15 07:55 | NUR ---
AAOX3, MULTIPLE COMPLAINS S/P HD ON THURSDAY: GENERALIZED WEAKNESS, BODY PAIN, DYSURIA, LOST OF APPETITE, SHAKINESS. RR IS EVEN AND UNLABORED WITH NAD NOTED. AV FISTULA NOTED ON LFA INTACT. SKIN IS WARM AND DRY. DR SON AT FOR EVAL. PATIENT PLACED ON MONITOR. WILL CONTINUOUSLY MONITOR THE PATIENT.
[2016-11-15] MEDS ORDERED: HYDROMORPHONE INJ 2 MG/ML DISP.SYRIN ONE (08:29)
[2016-11-15] MEDS ORDERED: IV NS 0.9% 1,000 ML BAG IV ONE (08:30)
[2016-11-15] MEDS ORDERED: HYDROMORPHONE 1 MG/1 ML DISP.SYRIN IV ONE (08:30)
[2016-11-15] MEDS ORDERED: VANCOMYCIN 1 GM in IV D5W 250 ML IV ONE (08:30)
[2016-11-15 08:38] LABS: BASOPHILS % (AUTO) 0.5 % (0.0-2.0); EOSINOPHILS # (AUTO) 0.2 /CMM (0.0-0.7); EOSINOPHILS % (AUTO) 3.4 % (0.0-6.0); HEMATOCRIT 24 % (39-51); HEMOGLOBIN 7.9 g/dL (13.5-17.5); LYMPHOCYTES # (AUTO) 0.6 /CMM (0.8-4.8); LYMPHOCYTES % (AUTO) 9.3 % (20.0-44.0); MEAN CORPUSCULAR HEMOGLOBIN 29 PG (26.0-33.0); MEAN CORPUSCULAR HGB CONC 32 g/dl (31.0-36.0); MEAN CORPUSCULAR VOLUME 89 fL (80-96); MONOCYTES # (AUTO) 0.7 /CMM (0.1-1.30); MONOCYTES % (AUTO) 11.5 % (2.0-12.0); NEUTROPHILS # (AUTO) 4.7 /CMM (1.8-8.9); NEUTROPHILS % (AUTO) 75.3 % (43.0-81.0); PLATELET COUNT (AUTO) 231 /CMM (150-450); RDW COEFFICIENT OF VARIATION 14.6 (11.5-15.0); RED BLOOD CELL COUNT(AUTO) 2.73 MIL/uL (4.5-6.0); WHITE BLOOD COUNT (AUTO) 6.2 K/uL (4.3-11.0)
[2016-11-15 08:49] LABS: CALCIUM, SERUM 10.1 mg/dL (8.5-10.1); CARBON DIOXIDE 30 mmol/L (21-32); CHLORIDE 102 mmol/L (98-107); GLUCOSE 101 mg/dL (74-106); POTASSIUM 5.5 mmol/L (3.5-5.1); SODIUM SERUM 141 mmol/L (136-145); UREA NITROGEN, BLOOD 49 mg/dL (7-18)
[2016-11-15 08:52] LABS: CREATININE 9.7 mg/dL (0.6-1.3)
[2016-11-15 08:54] LABS: INR 1.1 (0.87-1.13); PROTHROMBIN TIME 11.4 SECS (9.5-12.7)
[2016-11-15 08:55] LABS: ALANINE AMINOTRANSFERASE 12 U/L (12-78); ALBUMIN 3.1 g/dL (3.4-5.0); ALKALINE PHOSPHATASE 176 U/L (46-116); ASPARTATE AMINOTRANSFERASE 6 U/L (15-37); BILIRUBIN,DIRECT 0.1 mg/dL (0.0-0.2); BILIRUBIN,TOTAL 0.3 mg/dL (0.2-1.0); TOTAL PROTEIN, SERUM 7.4 g/dL (6.4-8.2)
[2016-11-15 08:57] LABS: TROPONIN I < 0.017 ng/mL (0.00-0.056)
[2016-11-15] MEDS ORDERED: CARV25TA2 PO (09:29)
[2016-11-15] MEDS ORDERED: ATOR10TA PO (09:29)
[2016-11-15] MEDS ORDERED: ASPI-991 PO (09:29)
[2016-11-15] MEDS ORDERED: SEVE800T8 PO (09:29)
[2016-11-15] MEDS ORDERED: CEFTRIAXONE 1GM BAG (ER ONLY) 50 ML IV ONE (09:54)
[2016-11-15] MEDS ORDERED: CEFTRIAXONE 1GM BAG (ER ONLY) 1 GM/50 ML PIGGYBACK IV ONE (10:00)
--- NOTE | 2016-11-15 10:27 | NUR ---
PANEL ON-CALL PAGED
--- NOTE | 2016-11-15 10:52 | NUR ---
GUILHERME FROM ADMITTING WANTS US TO WAIT FOR REPLY FROM INSURANCE FOR AUTH.
--- NOTE | 2016-11-15 11:05 | NUR ---
REPORT GIVEN TO EDDY PORRAS FOR [facility] TELE [id number]
--- NOTE | 2016-11-15 11:43 | NUR ---
I WAS NOTIFIED BY GUILHERME IN THE ADMITTING THAT PATIENT'S INSURANCE IS CAPITATED TO [facility]. I CALLED DR POOL AND HE SPOKE WITH DR SON REGARDING PATIENT ADMISSION. TRANSFERRED DR POOL TO GUILHERME FROM ADMITTING SINCE HE WAS REQUESTING MORE INFORMATION ON PATIENT'S INSURANCE. PER GUILHERME FROM ADMITTING, DR POOL WANTS PATIENT TO BE TRANSFERRED OUT.
--- NOTE | 2016-11-15 11:49 | NUR ---
RECEIVED A CALL FROM DR RANDELL POOL. HER ORDERED FOR THE PATIENT TO BE ADMITTED HERE AT [facility].
--- NOTE | 2016-11-15 12:35 | NUR ---
PATIENT ARRIVED TO UNIT
--- NOTE | 2016-11-15 12:38 | NUR ---
DIALYSIS NURSE AT BEDSIDE TO START DIALYSIS
[2016-11-15] MEDS: SEVELAMER CARBONATE 800 MG TABLET PO SCH ×2 (13:00→17:15)
--- NOTE | 2016-11-15 13:31 | NUR ---
SPOKE TO DR POOL. NEW ORDERS RECEIVED
[2016-11-15] MEDS: ACETAMINOPHEN 325 MG TABLET PO PRN (14:26)
[2016-11-15] MEDS ORDERED: MEROPENEM 1 G in IV NS 0.9% 100 ML IV SCH (14:30)
[2016-11-15] MEDS ORDERED: FEE PK DOSING 1 MIN EA MC ONE (14:49)
[2016-11-15] MEDS ORDERED: VANCOMYCIN 500 MG in IV D5W 100 ML IV PRN (15:00)
[2016-11-15] MEDS ORDERED: EPOETIN ALFA (20,000 UNIT) 20,000 UNIT/ML VIAL IV ONE (15:00)
[2016-11-15 16:00] VITALS: BP 113/70
[2016-11-15] MEDS: MEROPENEM 500 MG in IV NS 0.9% 50 ML IV SCH (16:48)
--- NOTE | 2016-11-15 19:29 | NUR ---
RN CLOSING NOTES PATIENT ADMITTED TO UNIT AT 12:35PM. ALL NURSING CARE PROVIDED. ALL DUE MEDS WERE GIVEN. PATIENT IS ALERT AND ORIENTED TO NAME, PLACE AND TIME. NO SIGNS AND SYMPTOMS OF DISTRESS. DENIED PAIN. IV SITE IS INTACT AND PATENT. NO RUNNING FLUID. TYLENOL WAS GIVEN TO STOP SHAKINESS. BED IN LOW POSITION, LOCKED AND 2 SIDE RAILS ARE UP. CALL LIGHT IS WITHIN REACH. WILL ENDORSE TO CASH APPLICATIONS SPECIALIST NURSE.
[2016-11-15 20:00] VITALS: BP 170/96
[2016-11-15] MEDS: ATORVASTATIN 10 MG TABLET PO SCH (21:36)
[2016-11-15] MEDS: CARVEDILOL 12.5 MG TABLET PO SCH (21:36)
[2016-11-16] VITALS (8 sets, daily range): BP systolic 139–167; BP diastolic 74–96
--- NOTE | 2016-11-16 06:00 | NUR ---
pt slept well, no bm ,no void, bp was elevated but per pt its his normal baseline is at 200's. denies any pain ,new iv site placed same site. old iv came out while asleep. pt made aware pt is still getting antibiotics.placed on monitor, sinus tachy, no ectopy.will continue to monitor. pt refused to have pants removed.
[2016-11-16 06:54] LABS: BASOPHILS % (AUTO) 0.2 % (0.0-2.0); EOSINOPHILS # (AUTO) 0.2 /CMM (0.0-0.7); EOSINOPHILS % (AUTO) 3.6 % (0.0-6.0); HEMATOCRIT 22 % (39-51); HEMOGLOBIN 7.3 g/dL (13.5-17.5); LYMPHOCYTES # (AUTO) 0.6 /CMM (0.8-4.8); LYMPHOCYTES % (AUTO) 12.1 % (20.0-44.0); MEAN CORPUSCULAR HEMOGLOBIN 29 PG (26.0-33.0); MEAN CORPUSCULAR HGB CONC 33 g/dl (31.0-36.0); MEAN CORPUSCULAR VOLUME 89 fL (80-96); MONOCYTES # (AUTO) 0.7 /CMM (0.1-1.30); MONOCYTES % (AUTO) 14.4 % (2.0-12.0); NEUTROPHILS # (AUTO) 3.5 /CMM (1.8-8.9); NEUTROPHILS % (AUTO) 69.7 % (43.0-81.0); PLATELET COUNT (AUTO) 197 /CMM (150-450)
[2016-11-16 07:05] LABS: POTASSIUM 4.9 mmol/L (3.5-5.1)
[2016-11-16 07:06] LABS: CREATININE 8.2 mg/dL (0.6-1.3)
[2016-11-16 07:12] LABS: APPEARANCE,URINE CLEAR (CLEAR); BILIRUBIN,URINE NEGATIVE (NEGATIVE); BLOOD, URINE TRACE-INTA Ery/uL (NEGATIVE); COLOR,URINE YELLOW (YELLOW); KETONES,URINE NEGATIVE (NEGATIVE); LEUKOCYTE ESTERASE ,URINE NEGATIVE (NEGATIVE); NITRITE, URINE NEGATIVE (NEGATIVE); PROTEIN,URINE 2+ mg/dl (NEGATIVE); UGLUCOSE TRACE mg/dL (NEGATIVE); UROBILINOGEN,URINE 0.2 EU/dL (0.2)
--- NOTE | 2016-11-16 07:21 | NUR ---
RN OPEN NOTES RECEIVED REPORT FROM ROVING SIZER NURSE. WILL CONTINUE TO MONIOR AND ASSESS PATIENT THROUGHOUT MY SHIFT
[2016-11-16 07:34] LABS: BACTERIA,URINE Rare /HPF (None Seen); RBC,URINE 0-2 /HPF (0-2); SQUAMOUS EPITHELIAL CELL,UR Rare /HPF (None Seen); WBC,URINE 0-2 /HPF (0-3)
[2016-11-16] MEDS: SEVELAMER CARBONATE 800 MG TABLET PO SCH ×3 (08:36→17:33)
[2016-11-16] MEDS: CARVEDILOL 12.5 MG TABLET PO SCH ×2 (08:37→21:41)
[2016-11-16] MEDS: FOLIC ACID 1 MG TABLET PO SCH (08:37)
[2016-11-16] MEDS: ASPIRIN EC 81 MG TABLET.DR PO SCH (08:37)
--- NOTE | 2016-11-16 11:00 | NUR ---
DR POOL AT BEDSIDE
--- NOTE | 2016-11-16 13:45 | NUR ---
DR SALINAS AT BEDSIDE
--- NOTE | 2016-11-16 14:05 | NUR ---
MERREM HELD AND TO BE GIVEN AFTER DIALYSIS
--- NOTE | 2016-11-16 14:06 | NUR ---
VANCO TO BE GIVEN AFTER DIALYSIS
--- NOTE | 2016-11-16 15:00 | NUR ---
CONSENT FOR HD AND BLOOD TRANSFUSION SIGNED BY PATIENT AND PLACED IN THE CHART.
--- NOTE | 2016-11-16 18:26 | NUR ---
RN CLOSING NOTES PATIENT IS ALERT AND ORIENTED TO NAME, PLACE AND TIME. AT BEDSIDE. ALL NURSING CARE PROVIDED. ALL DUE MEDS WERE GIVEN. MERREM WAS HELD DUE TO DIALYSIS AT 7PM. DIALYSIS NURSE WILL ADMINISTER MERREM AFTER DIALYSIS. ONE UNIT OF BLOOD TRANSFUSION WILL BE GIVEN WITH DIALYSIS. VANCO TO BE ADMINISTER AFTER DIALYSIS. CONSENT FOR HD AND BLOOD TRANSFUSION SIGNED BY PATIENT AND PLACED IN THE CHART. NO SIGNS AND SYMPTOMS OF DISTRESS. DENIED PAIN. IV SITE IS INTACT AND PATENT. NO RUNNING FLUID. BED IN LOW POSITION, LOCKED AND 2 SIDE RAILS ARE UP. CALL LIGHT IS WITHIN REACH. WILL ENDORSE TO EDI CONSULTANT NURSE.
[2016-11-16] MEDS: MEROPENEM 500 MG in IV NS 0.9% 50 ML IV SCH (19:08)
--- NOTE | 2016-11-16 21:00 | NUR ---
PT TOLERATED DIALYSIS WITH 1 UNIT PRBC GIVEN WITHOUT REACTION, 2.3 L FLUID REMOVED WITH DIALYSIS, VSS, AFEBRILE. WILL CONTINUE TO MONITOR.
[2016-11-16] MEDS: ATORVASTATIN 10 MG TABLET PO SCH (21:40)
[2016-11-16 22:39] LABS: HEMOGLOBIN 9.1 g/dL (13.5-17.5)
[2016-11-17] VITALS: BP 144/82
[2016-11-17] MEDS ORDERED: VANCOMYCIN 1 GM in IV D5W 250 ML IV ONE (00:30)
[2016-11-17] MEDS ORDERED: VANCOMYCIN 1 GM VIAL ONE (00:32)
--- NOTE | 2016-11-17 01:00 | NUR ---
VANCO LEVEL DRAWN RESULTED 10, CALLED PHARMACY CONTRACT SHELTERED WORKSHOP SUPERVISOR AND ORDERED TO GIVE 1GM OF VANCO AND GIVEN.NO FURTHER ORDER.
[2016-11-17 04:00] VITALS: BP 138/84
--- NOTE | 2016-11-17 05:30 | NUR ---
no significant changes overnight ,slept well, no void,no bm. vss,afebrile, will continue to monitor, sinus rhythm.
[2016-11-17 06:35] LABS: BASOPHILS % (AUTO) 0.6 % (0.0-2.0); EOSINOPHILS # (AUTO) 0.2 /CMM (0.0-0.7); EOSINOPHILS % (AUTO) 3.4 % (0.0-6.0); HEMATOCRIT 27 % (39-51); HEMOGLOBIN 8.7 g/dL (13.5-17.5); LYMPHOCYTES # (AUTO) 0.7 /CMM (0.8-4.8); LYMPHOCYTES % (AUTO) 11.9 % (20.0-44.0); MEAN CORPUSCULAR HEMOGLOBIN 29 PG (26.0-33.0); MEAN CORPUSCULAR HGB CONC 33 g/dl (31.0-36.0); MEAN CORPUSCULAR VOLUME 90 fL (80-96); MONOCYTES # (AUTO) 0.8 /CMM (0.1-1.30); MONOCYTES % (AUTO) 14.3 % (2.0-12.0); NEUTROPHILS # (AUTO) 3.9 /CMM (1.8-8.9); NEUTROPHILS % (AUTO) 69.8 % (43.0-81.0); PLATELET COUNT (AUTO) 198 /CMM (150-450); RDW COEFFICIENT OF VARIATION 14.9 (11.5-15.0); RED BLOOD CELL COUNT(AUTO) 2.97 MIL/uL (4.5-6.0); WHITE BLOOD COUNT (AUTO) 5.5 K/uL (4.3-11.0)
[2016-11-17 06:52] LABS: CALCIUM, SERUM 10.2 mg/dL (8.5-10.1); POTASSIUM 4.6 mmol/L (3.5-5.1)
[2016-11-17 06:55] LABS: CREATININE 8.4 mg/dL (0.6-1.3)
[2016-11-17 07:50] LABS: THYROID STIMULATING HORMONE 0.246 uIU/mL (0.358-3.74)
[2016-11-17 08:00] VITALS: BP 152/81
--- NOTE | 2016-11-17 08:17 | NUR ---
TELE/RN NOTES RECEIVED PATIENT RESTING IN BED EATING BREAKFAST INDEPENDENTLY, ALERT AND ORIENTED X3, IN NO APPARENT DISTRESS. RESPIRATIONS EVEN AND UNLABORED, ON ROOM AIR. ON TELE MONITOR SR IN 90'S. IV TO RIGHT FA 22 INTACT AND PATENT, TKO WITH EMPIRIC ANTIBIOTICS. LEFT FA AV FISTULA ON DIALYSIS. SAFETY MEASURES RENDERED, CALL LIGHT PLACED WITHIN REACH. WILL CONTINUE TO MONITOR.
[2016-11-17] MEDS: CARVEDILOL 12.5 MG TABLET PO SCH ×2 (09:28→21:13)
[2016-11-17] MEDS: SEVELAMER CARBONATE 800 MG TABLET PO SCH ×3 (09:28→17:11)
[2016-11-17] MEDS: FOLIC ACID 1 MG TABLET PO SCH (09:28)
[2016-11-17] MEDS: ASPIRIN EC 81 MG TABLET.DR PO SCH (09:28)
[2016-11-17] MEDS: MEROPENEM 500 MG in IV NS 0.9% 50 ML IV SCH (15:05)
--- NOTE | 2016-11-17 15:54 | NUR ---
TELE/RN NOTES PATIENT RESTING IN BED WITH AT BEDSIDE. DISCUSSED PLAN OF CARE WITH FAMILY AND PATIENT, AGREED. PATIENT RECEIVING EMPIRIC DOSE OF ANTIBIOTICS. WILL CONTINUE TO MONITOR.
--- NOTE | 2016-11-17 18:39 | NUR ---
TELE/RN NOTES PATIENT RESTING IN BED SLEEPING, AROUSED BY VERBAL STIMULI, NO SIGNIFICANT CHANGES IN CONDITION NOTED, VITAL SIGNS STABLE. PATIENT WEAK AND LETHARGIC SLEEPING THROUGHOUT THE DAY. PERIODS OF CONFUSION. ALL DUE MEDICATIONS GIVEN, ALL NEEDS MET AND ATTENDED. PT DENIED ANY PAIN OR DISCOMFORT, SAFETY/FALL MEASURES RENDERED, CALL LIGHT PLACED WITHIN REACH. WILL ENDORSE CARE TO DISTRICT CLAIMS MANAGER FOR VANESSA
--- NOTE | 2016-11-17 19:20 | NUR ---
TELE LEASE ANALYST INITIAL NOTES CHECKED PT WHILE DOING ROUNDS WITH AM NURSE. SEEN PT IN RESTING WITH EYES CLOSED , BREATHING EVEN AND NON-LABORED, NOT IN ANY ACUTE DISTRESS NOTED AT THIS TIME. PER AM NURSE PT HAS BEEN LETHARGIC /SLEEPING ALL DAY. HE WOKE UP WHEN HE HEARD OUR VOICE, RE-ORIENTED WHERE HE AT AND HOW TO USED THE CALL LIGHT SYSTEM AND ENCOURAGE HIM TO USE IT IF HE NEEDS SOME HELP OR NEED ASSISTANCE. TELE SR HEART RATE 93 PER MONITOR. KEPT HIM WARM AND COMFORTABLE AT ALL TIMES. SON JUST CAME. WILL CONTINUE TO MONITOR. PLACE CALL LIGHT AT REACH.
[2016-11-17 20:00] VITALS: BP 158/85
[2016-11-17 20:49] VITALS: BP 157/85
[2016-11-17] MEDS: ATORVASTATIN 10 MG TABLET PO SCH (21:13)
[2016-11-18] VITALS (8 sets, daily range): BP systolic 141–176; BP diastolic 79–96
--- NOTE | 2016-11-18 07:30 | NUR ---
TELE TRANSLATOR/INTERPRETER CLOSING NOTES PT WOKE UP AND SAW HIM TRYING TO STAND UP AND TRANSFER TO CHAIR. HELPED HIM AND AT THE SAME TIME ENCOURAGE HIM TO CALL FOR HELP FOR HIS SAFETY. RE-ORIENTED WHERE HE AT AND HOW TO USED THE CALL LIGHT SYSTEM, DENIES ANY PAIN OR ANY DISCOMFORT. SLEPT WELL AND STABLE [place] THE NIGHT. TELE SER PER MONITOR. ENDORSE TO AM NURSE FOR CONTINUITY OF CARE. PLACE CALL LIGHT AT REACH.
--- NOTE | 2016-11-18 07:40 | NUR ---
VAT HOUSE SUPERVISOR NOTES PT AWAKE, SITTING IN HIS CHAIR, ALERT AND VERBALLY RESPONSIVE, DENIES PAIN, NOT IN DISTRESS, REMINDED PT TO USE CALL LIGHT FOR ASSISTANCE, VERBALIZED UNDERSTANDING, NEEDS ATTENDED.
[2016-11-18] MEDS: SEVELAMER CARBONATE 800 MG TABLET PO SCH ×3 (08:40→16:24)
[2016-11-18] MEDS: FOLIC ACID 1 MG TABLET PO SCH (08:40)
[2016-11-18] MEDS: CARVEDILOL 12.5 MG TABLET PO SCH ×2 (08:40→20:10)
[2016-11-18] MEDS: ASPIRIN EC 81 MG TABLET.DR PO SCH (08:40)
--- NOTE | 2016-11-18 11:29 | NUR ---
RN MS NOTES PT IN BED, AWAKE, ALERT AND ORIENTED, PT SEEN BY DR. POOL, ORDERS GIVEN, PT WITH ONGOING DIALYSIS AT THIS TIME, TOLERATING WELL, WILL CONTINUE TO MONITOR.
[2016-11-18] MEDS: MEROPENEM 500 MG in IV NS 0.9% 50 ML IV SCH (16:23)
--- NOTE | 2016-11-18 18:38 | NUR ---
RN MS NOTES PT IN BED, ASLEEP, EASY TO AROUSE, ALERT AND ORIENTED, NO COMPLAINT OF PAIN OR ANY DISCOMFORT, BREATHING PATTERN NORMAL, IV SITE AT RIGHT FOREARM INTACT AND PATENT, NO BLEEDING NOTED AT DIALYSIS SHUNT SITE AT LEFT FOREARM, DRESSING DRY AND INTACT, CALL LIGHT WITHIN REACH.
--- NOTE | 2016-11-18 19:13 | NUR ---
MS RN OPENING NOTES: RECEIVED PT IN BED AND IS ASLEEP. NO S/S OF DISTRESS NOTED AT THIS TIME. NO COMPLAINTS OF PAIN AT THIS TIME. BREATHING PATTERN NORMAL. IV SITE AT R FOREARM #22G AND IS PATENT AND INTACT. PT HAS L FOREARM AV SHUNT NOTED. BRUIT/THRILL NOTED. CALL LIGHT WITHIN PT'S REACH. BED KEPT IN LOW, LOCKED POSITION, AND SIDE RAILS X 2 UP. WILL CONTINUE TO MONITOR PT.
--- NOTE | 2016-11-18 20:13 | NUR ---
MS RN NOTES; BP WAS 176/96 HR 86. ADMINISTERED COREG 25MG PO. WILL RECHECK BP.
[2016-11-18] MEDS: ATORVASTATIN 10 MG TABLET PO SCH (21:10)
--- NOTE | 2016-11-19 01:13 | NUR ---
MS RN NOTES: PAGED DR. POOL'S OFFICE. AWAITING FOR CALL BACK.
--- NOTE | 2016-11-19 01:45 | NUR ---
MS RN NOTES: SPOKE WITH DR. POOL AND GOT ORDER FOR AMBIEN 5MG PO PRN HS AND FOR CLONIDINE 0.1MG PO Q6HR PRN FOR SYSTOLIC >150 . Addendum: 11/19/16 at 0151 by DELFINA HARTMANN RN INFORMED OF 20:00PM VITALS AND FOR MOST RECENT BP 173/86 HR 83. BP DIDN'T GO DOWN AFTER COREG 25MG.
[2016-11-19] MEDS ORDERED: CLONIDINE HCL 0.1 MG TABLET ONE (01:50)
--- NOTE | 2016-11-19 01:54 | NUR ---
MS RN NOTES; BP IS 173/86 HR 83 ; PT WAS ADMINISTERED CLONIDINE 0.1MG PO ; WILL CONTINUE TO MONITOR PT.
[2016-11-19] MEDS ORDERED: ZOLPIDEM TARTRATE 5 MG TABLET PO PRN (02:00)
[2016-11-19] MEDS ORDERED: CLONIDINE HCL 0.1 MG TABLET PO PRN (02:00)
[2016-11-19 03:00] VITALS: BP 141/84
[2016-11-19 06:37] LABS: BASOPHILS % (AUTO) 0.4 % (0.0-2.0); EOSINOPHILS # (AUTO) 0.2 /CMM (0.0-0.7); EOSINOPHILS % (AUTO) 3.3 % (0.0-6.0); HEMATOCRIT 25 % (39-51); HEMOGLOBIN 8.4 g/dL (13.5-17.5); LYMPHOCYTES # (AUTO) 0.7 /CMM (0.8-4.8); MEAN CORPUSCULAR HEMOGLOBIN 29 PG (26.0-33.0); MEAN CORPUSCULAR HGB CONC 33 g/dl (31.0-36.0); MEAN CORPUSCULAR VOLUME 89 fL (80-96); MONOCYTES # (AUTO) 0.7 /CMM (0.1-1.30); NEUTROPHILS % (AUTO) 72.3 % (43.0-81.0); PLATELET COUNT (AUTO) 220 /CMM (150-450); RDW COEFFICIENT OF VARIATION 14.9 (11.5-15.0); RED BLOOD CELL COUNT(AUTO) 2.87 MIL/uL (4.5-6.0); WHITE BLOOD COUNT (AUTO) 5.6 K/uL (4.3-11.0)
[2016-11-19 06:46] LABS: CALCIUM, SERUM 10.2 mg/dL (8.5-10.1)
--- NOTE | 2016-11-19 07:05 | NUR ---
RN INITIAL NOTES: Patient resting in bed. Patient alert oriented x2-3. Nonlabored breathing noted on room air. No signs of distress noted. IV site on right forearm patent and intact. Bed in lowest locked position. Call light within reach. Will continue to monitor
[2016-11-19 07:07] LABS: CREATININE 10.1 mg/dL (0.6-1.3)
--- NOTE | 2016-11-19 07:08 | NUR ---
MS RN CLOSING NOTES: ALL NEEDS WERE ATTENDED AND ANTICIPATED FOR. PT IS IN BED ASLEEP. NO S/S OF DISTRESS NOTED AT THIS TIME. PT IS A/OX2-3. NO COMPLAINTS OF PAIN AT THIS TIME. BREATHING EVEN AND UNLABORED. IV SITE R FOREARM #22G AND IS PATENT AND INTACT AND CURRENTLY S/L. PT HAS L FOREARM AV SHUNT. BRUIT/THRILL NOTED. WALKER AT BEDSIDE. CALL LIGHT WITHIN PT'S REACH. BED KEPT IN LOW, LOCKED POSITION, AND SIDE RAILS X 2 UP. ENDORSED TO AM NURSE FOR VANESSA.
[2016-11-19 08:00] VITALS: BP 152/87
--- NOTE | 2016-11-19 08:20 | NUR ---
RN Notes: Dr. Vickers aware of today's results. No new orders
[2016-11-19] MEDS: ASPIRIN EC 81 MG TABLET.DR PO SCH (09:36)
[2016-11-19] MEDS: SEVELAMER CARBONATE 800 MG TABLET PO SCH ×3 (09:36→17:41)
[2016-11-19] MEDS: FOLIC ACID 1 MG TABLET PO SCH (09:36)
[2016-11-19] MEDS: AMLODIPINE BESYLATE 5 MG TABLET PO SCH (09:37)
[2016-11-19] MEDS: CARVEDILOL 12.5 MG TABLET PO SCH ×2 (09:37→21:04)
[2016-11-19] MEDS: MEROPENEM 500 MG in IV NS 0.9% 50 ML IV SCH (15:50)
[2016-11-19 16:00] VITALS: BP 146/81
[2016-11-19] MEDS: ACETAMINOPHEN 325 MG TABLET PO PRN (16:23)
--- NOTE | 2016-11-19 19:25 | NUR ---
MS RN INITIAL NOTES PT IS IN BED RESTING WITH FAMILY AT BEDSIDE. NO SIGNS OF SOB OR DISTRESS. BREATHING EVENLY AND UNLABORED ON ROOM AIR. DENIES PAIN AT THIS TIME. IV ACCESS IS INTACT AND PATENT. PT HAS LEFT FOREARM AV SHUNT, BRUIT AND THRILL NOTED. BED IS IN LOW AND LOCKED POSITION, CALL LIGHT WITHIN REACH. WILL CONTINUE TO MONITOR PT
--- NOTE | 2016-11-19 19:30 | NUR ---
MS RN Closing Notes Patient resting in bed. Patient alert oriented x2-3. Nonlabored breathing noted on room air. No signs of distress noted. IV site on right forearm patent and intact. Bed in lowest locked position. Patient denies pain at the moment. Call light within reach. Patient endorsed to next shift
[2016-11-19 20:00] VITALS: BP 143/82
[2016-11-19] MEDS: ATORVASTATIN 10 MG TABLET PO SCH (21:04)
--- NOTE | 2016-11-20 06:49 | NUR ---
MS RN CLOSING NOTES PT IS IN BED SLEPT, SLEPT THROUGHOUT THE NIGHT. NO SIGNS OF SOB OR DISTRESS. BREATHING EVENLY AND UNLABORED ON RA. BED IS IN LOW AND LOCKED POSITION. CALL LIGHT WITHIN REACH. WILL ENDORSE TO DAYSHIFT
--- NOTE | 2016-11-20 07:00 | NUR ---
MS INITIAL RN NOTES: PATIENT RESTING IN BED. NO SIGNS OF DISTRESS NOTED. PATIENT DENIES PAIN AT THE MOMENT. NONLABORED BREATHING NOTED ON ROOM AIR. IV SITE PATENT AND INTACT. BED IN LOWEST POSITION. CALL LIGHT WITHIN REACH. WILL CONTINUE TO MONITOR.
[2016-11-20 07:04] LABS: BASOPHILS % (AUTO) 0.4 % (0.0-2.0); EOSINOPHILS # (AUTO) 0.2 /CMM (0.0-0.7); EOSINOPHILS % (AUTO) 2.8 % (0.0-6.0); HEMATOCRIT 25 % (39-51); HEMOGLOBIN 8.6 g/dL (13.5-17.5); LYMPHOCYTES # (AUTO) 0.9 /CMM (0.8-4.8); LYMPHOCYTES % (AUTO) 15.1 % (20.0-44.0); MEAN CORPUSCULAR HEMOGLOBIN 30 PG (26.0-33.0); MEAN CORPUSCULAR HGB CONC 34 g/dl (31.0-36.0); MEAN CORPUSCULAR VOLUME 88 fL (80-96); MONOCYTES # (AUTO) 0.6 /CMM (0.1-1.30); MONOCYTES % (AUTO) 10.4 % (2.0-12.0); NEUTROPHILS # (AUTO) 4.4 /CMM (1.8-8.9); NEUTROPHILS % (AUTO) 71.3 % (43.0-81.0); PLATELET COUNT (AUTO) 222 /CMM (150-450); RED BLOOD CELL COUNT(AUTO) 2.85 MIL/uL (4.5-6.0); WHITE BLOOD COUNT (AUTO) 6.1 K/uL (4.3-11.0)
[2016-11-20 07:21] LABS: CALCIUM, SERUM 9.9 mg/dL (8.5-10.1)
[2016-11-20 08:00] VITALS: BP 161/86
[2016-11-20 08:03] LABS: CREATININE 12.8 mg/dL (0.6-1.3)
--- NOTE | 2016-11-20 08:20 | NUR ---
MS RN NOTES LAB REPORTED AT 0801 BUN LEVELS OF 93 WELL CREATININE LEVEL OF 12.8. DR POOL AWARE OF PATIENT'S LAB RESULTS. HEMODIALYSIS TO BE DONE TODAY.
[2016-11-20] MEDS: SEVELAMER CARBONATE 800 MG TABLET PO SCH (10:17)
[2016-11-20] MEDS: AMLODIPINE BESYLATE 5 MG TABLET PO SCH (10:17)
[2016-11-20 10:18] VITALS: BP 133/79
[2016-11-20] MEDS: ASPIRIN EC 81 MG TABLET.DR PO SCH (10:18)
[2016-11-20] MEDS: FOLIC ACID 1 MG TABLET PO SCH (10:18)
[2016-11-20] MEDS: CARVEDILOL 12.5 MG TABLET PO SCH (10:18)
--- NOTE | 2016-11-20 10:40 | NUR ---
MS RN NOTES: SPOKE TO DR. POOL AND INFORMED HIM OF BLOOD CULTURE RESULTS. ORDERED TO DISCHARGE PATIENT AND CONTINUE HOME MEDICATIONS. VANCOMYCIN DOSE AFTER HD ALSO HELD PER MD ORDERS
--- NOTE | 2016-11-20 14:25 | NUR ---
RN NOTES: PATIENT DISCHARGED HOME PER MD ORDERS. PATIENT STABLE. NONLABORED BREATHING ON ROOM AIR. VITAL SIGNS WNL. PATIENT DENIES PAIN AT THE MOMENT. PATIENT VOMITTED EARLIER 20 CC OF CLEAR LIQUID. PATIENT OFFERED IF NEEDED MEDICATION. PATIENT REFUSED, AND STATED WANTING TO GO HOME. PATIENT HAD DIALYSIS EARLIER IN THE DAY WITH AN OUTPUT OF 2 L. PATIENT EDUCATED ON [facility] WELL FOLLOWING UP WITH [facility] PROVIDER AND STANDPIPE TENDER WITHIN 1-2 WEEKS. PATIENT GIVEN PRESCRIPTION THAT WAS WRITTEN BY DR POOL. PATIENT'S VALUABLES ACCOUNTED FOR. IV ACCESS REMOVED. PATIENT LEFT WITH SON VIA WALKING. PATIENT OFFERED WHEELCHAIR. HOWEVER, PATIENT REFUSED. PATIENT ALSO REFUSED TO BE ACCOMPANIED BY CAREER LAW CLERK. PATIENT ALSO REFUSED MEDICATIONS DUE AT 1300. BENEFITS AND RISKS EXPLAINED.
== END 2016-11-20 14:15 | disposition home or self-care (01) | DRG 720 ==
LOC: ER 07:49 → MED 11:55 → TELE 11-16 02:03 → MED 11-18 10:43
PROVIDERS: ADMIT Internal Medicine; ATTEND Internal Medicine
PROC: 5A1D70Z Performance of Urinary Filtration, Intermittent, Less than 6 Hours Per Day (ICD-10-PCS; principal; 2016-11-15)
PROC: 30233N1 Transfusion of Nonautologous Red Blood Cells into Peripheral Vein, Percutaneous Approach (ICD-10-PCS; 2016-11-16)
DX: A41.9 Sepsis, unspecified organism (principal); I12.0 Hypertensive chronic kidney disease with stage 5 chronic kidney disease or end stage renal disease; N18.6 End stage renal disease; E87.5 Hyperkalemia; I25.10 Atherosclerotic heart disease of native coronary artery without angina pectoris; Z99.2 Dependence on renal dialysis; F17.210 Nicotine dependence, cigarettes, uncomplicated; I51.7 Cardiomegaly; K21.9 Gastro-esophageal reflux disease without esophagitis; Z85.46 Personal history of malignant neoplasm of prostate; Z85.820 Personal history of malignant melanoma of skin; D63.1 Anemia in chronic kidney disease; J01.00 Acute maxillary sinusitis, unspecified; Z83.3 Family history of diabetes mellitus; Z90.79 Acquired absence of other genital organ(s)
CPT/HCPCS: 36415; 70450-TC; 71010-TC; 80048-TC; 80076-TC; 80202-TC; 81000-TC; 83605-TC; 84443-TC; 84484-TC; 85025-TC; 85027-TC; 85730-TC; 86850-TC; 86921-TC; 87040-TC; 87081-TC; 87086-TC; 90935-TC; A4216; A4606; A6402; J0696; J0885; J1170; J2185; J3370; J7030; J7050; J7060; P9016-BL; Z7610

== ENCOUNTER 2017-02-05 13:06 | Emergency (ER) | payer MEDICAID ==
[~2017-02-05] VITALS: Ht 172.7 cm; Wt 72.6 kg
[~2017-02-05 13:06] MED LIST changes: -AMLO10TA2 PO; +ASPI-1152 PO; -ASPI-991 PO; -CARV12.52 PO; +CARV25TA2 PO; -CINA90TA PO; -DOXA4TAB3 PO; -PROP40TA7 PO; +SEVE800T8 PO; -VALS160T2 PO
--- NOTE | 2017-02-05 13:13 | NUR ---
COUGH, CONGESTION, FLU SYMPTOMS x 24 HRS. AWAITING MD ORDER
--- NOTE | 2017-02-05 13:52 | NUR ---
RFA #18 IV ACCESS BLOOD SAMPLE COLLECTED SENT TO LAB
[2017-02-05 13:53] LABS: BASOPHILS % (AUTO) 0.4 % (0.0-2.0); EOSINOPHILS # (AUTO) 0.3 /CMM (0.0-0.7); EOSINOPHILS % (AUTO) 4.4 % (0.0-6.0); HEMATOCRIT 29 % (39-51); HEMOGLOBIN 9.5 g/dL (13.5-17.5); LYMPHOCYTES # (AUTO) 0.4 /CMM (0.8-4.8); LYMPHOCYTES % (AUTO) 6.7 % (20.0-44.0); MEAN CORPUSCULAR HEMOGLOBIN 27 PG (26.0-33.0); MEAN CORPUSCULAR HGB CONC 33 g/dl (31.0-36.0); MEAN CORPUSCULAR VOLUME 83 fL (80-96); MONOCYTES # (AUTO) 0.5 /CMM (0.1-1.30); MONOCYTES % (AUTO) 9.2 % (2.0-12.0); NEUTROPHILS # (AUTO) 4.6 /CMM (1.8-8.9); NEUTROPHILS % (AUTO) 79.3 % (43.0-81.0); PLATELET COUNT (AUTO) 187 /CMM (150-450); RDW COEFFICIENT OF VARIATION 16.6 (11.5-15.0); RED BLOOD CELL COUNT(AUTO) 3.46 MIL/uL (4.5-6.0); WHITE BLOOD COUNT (AUTO) 5.8 K/uL (4.3-11.0)
[2017-02-05] MEDS ORDERED: IBUPROFEN 600 MG TABLET PO ONE ×2 (13:54→14:00)
[2017-02-05] MEDS ORDERED: IV NS 0.9% 500 ML BAG IV ONE (14:00)
[2017-02-05 14:07] LABS: INR 1.16 (0.87-1.13); PROTHROMBIN TIME 12.1 SECS (9.5-12.7)
[2017-02-05 14:11] LABS: ALANINE AMINOTRANSFERASE 13 U/L (12-78); ALBUMIN 3.2 g/dL (3.4-5.0); ALKALINE PHOSPHATASE 164 U/L (46-116); ASPARTATE AMINOTRANSFERASE 7 U/L (15-37); BILIRUBIN,DIRECT 0.1 mg/dL (0.0-0.2); BILIRUBIN,TOTAL 0.3 mg/dL (0.2-1.0); CALCIUM, SERUM 9.5 mg/dL (8.5-10.1); CARBON DIOXIDE 27 mmol/L (21-32); CHLORIDE 104 mmol/L (98-107); GLUCOSE 113 mg/dL (74-106); POTASSIUM 4.9 mmol/L (3.5-5.1); SODIUM SERUM 143 mmol/L (136-145); TOTAL PROTEIN, SERUM 7.1 g/dL (6.4-8.2)
[2017-02-05 14:12] LABS: TROPONIN I < 0.017 ng/mL (0.00-0.056)
[2017-02-05 14:25] LABS: CREATININE 12.3 mg/dL (0.6-1.3); UREA NITROGEN, BLOOD 84 mg/dL (7-18)
[2017-02-05] MEDS ORDERED: CHOL100044 PO (14:39)
--- NOTE | 2017-02-05 14:58 | NUR ---
IV removed. Catheter intact and site benign. Pressure and 4x4 applied to site. No bleeding noted.
--- NOTE | 2017-02-05 14:59 | NUR ---
Patient discharged to home in stable condition. Written and verbal after care instructions given. Patient verbalizes understanding of instruction.
[2017-02-05 15:01] VITALS: BP 140/83
== END 2017-02-05 15:02 | disposition home or self-care (01) ==
LOC: ER 13:08
DX: J10.1 Influenza due to other identified influenza virus with other respiratory manifestations (principal); I12.9 Hypertensive chronic kidney disease with stage 1 through stage 4 chronic kidney disease, or unspecified chronic kidney disease; N18.9 Chronic kidney disease, unspecified; F17.200 Nicotine dependence, unspecified, uncomplicated; Z85.51 Personal history of malignant neoplasm of bladder; Z85.820 Personal history of malignant melanoma of skin; Z79.82 Long term (current) use of aspirin
CPT/HCPCS: 36415; 71010; 80048; 80076; 83605; 84484; 85025; 85730; 87040 ×2; 87077; 87186; 87804; 93005; 96360; 99285; A4606; J7040; Z7610; 87400

== ENCOUNTER 2017-04-12 16:38 | Emergency (ER) | payer MEDICAID ==
[~2017-04-12] VITALS: Ht 180.3 cm; Wt 79.4 kg
[~2017-04-12 16:38] MED LIST changes: +CHOL100044 PO
--- NOTE | 2017-04-12 16:45 | NUR ---
66 YO MALE BB [employer] ON A HOLD PLACED 04/12/17 AT 1345 DTS. PATIENT STATES HIS PLAN IS TO CUT HIS THROAT. PATIENT STATES HE HAS BEEN FEELING DEPRESSED. PATIENT GOWNED, PLACED ON FILM CRITIC. AWAITING ORDERS FROM PROVIDER
[2017-04-12 17:06] LABS: BASOPHILS % (AUTO) 0.6 % (0.0-2.0); EOSINOPHILS # (AUTO) 0.1 /CMM (0.0-0.7); EOSINOPHILS % (AUTO) 1.7 % (0.0-6.0); HEMATOCRIT 29 % (39-51); HEMOGLOBIN 9.6 g/dL (13.5-17.5); LYMPHOCYTES # (AUTO) 0.7 /CMM (0.8-4.8); LYMPHOCYTES % (AUTO) 13.8 % (20.0-44.0); MEAN CORPUSCULAR HEMOGLOBIN 28 PG (26.0-33.0); MEAN CORPUSCULAR HGB CONC 33 g/dl (31.0-36.0); MEAN CORPUSCULAR VOLUME 83 fL (80-96); MONOCYTES # (AUTO) 0.6 /CMM (0.1-1.30); MONOCYTES % (AUTO) 11.5 % (2.0-12.0); NEUTROPHILS # (AUTO) 3.5 /CMM (1.8-8.9); NEUTROPHILS % (AUTO) 72.4 % (43.0-81.0); PLATELET COUNT (AUTO) 262 /CMM (150-450); RDW COEFFICIENT OF VARIATION 17.5 (11.5-15.0); RED BLOOD CELL COUNT(AUTO) 3.48 MIL/uL (4.5-6.0); WHITE BLOOD COUNT (AUTO) 4.8 K/uL (4.3-11.0)
[2017-04-12 17:17] LABS: CALCIUM, SERUM 9.9 mg/dL (8.5-10.1); CARBON DIOXIDE 25 mmol/L (21-32); CHLORIDE 99 mmol/L (98-107); GLUCOSE 116 mg/dL (74-106); POTASSIUM 3.7 mmol/L (3.5-5.1); SODIUM SERUM 140 mmol/L (136-145); UREA NITROGEN, BLOOD 72 mg/dL (7-18)
[2017-04-12 17:18] LABS: CREATININE 9.8 mg/dL (0.6-1.3)
[2017-04-12 17:23] LABS: ALANINE AMINOTRANSFERASE 11 U/L (12-78); ALBUMIN 3.4 g/dL (3.4-5.0); ALCOHOL, BLOOD < 3 mg/dL (0-0); ALKALINE PHOSPHATASE 138 U/L (46-116); ASPARTATE AMINOTRANSFERASE 6 U/L (15-37); BILIRUBIN,DIRECT 0.1 mg/dL (0.0-0.2); BILIRUBIN,TOTAL 0.4 mg/dL (0.2-1.0); TOTAL PROTEIN, SERUM 7.9 g/dL (6.4-8.2)
[2017-04-12 17:24] LABS: ACETAMINOPHEN 0 ug/ml (10-30)
--- NOTE | 2017-04-12 17:32 | NUR ---
CALLED PROGRAM WRITER NEHA JOEL @ [phone]. UNABLE TO REACH. LEFT VOICEMAIL.
--- NOTE | 2017-04-12 17:35 | NUR ---
ETA OF 60-90 MIN FOR NEHA
[2017-04-12] MEDS ORDERED: NIFE90TA2 PO (17:40)
[2017-04-12] MEDS ORDERED: VALS160T24 PO (17:40)
[2017-04-12] MEDS ORDERED: DOXA4TAB3 PO (17:40)
[2017-04-12] MEDS ORDERED: MINO2.5T PO (17:40)
--- NOTE | 2017-04-12 21:19 | NUR ---
NEHA BROKE THE HOLD AND SPOKE TO MD SON, PT IS AT BEDSIDE AND PT STATES SHE IS TAKING HIM HOME, AND WILL BRING HIM TO HIS PMD FIRST THING IN THE MORNING. MD SON IS OK WITH THIS PLAN AND WAS DISCHARGED, PT GIVEN ACI AND WALKED OUT OF THE ER WITH A STEADY GAIT WITH HIS .
[2017-04-12 21:22] VITALS: BP 139/84
== END 2017-04-12 21:23 | disposition home or self-care (01) ==
LOC: ER 16:40
DX: F32.9 Major depressive disorder, single episode, unspecified (principal); I12.0 Hypertensive chronic kidney disease with stage 5 chronic kidney disease or end stage renal disease; N18.6 End stage renal disease; F17.200 Nicotine dependence, unspecified, uncomplicated; Z99.2 Dependence on renal dialysis; Z85.51 Personal history of malignant neoplasm of bladder; Z85.820 Personal history of malignant melanoma of skin; Z79.82 Long term (current) use of aspirin
CPT/HCPCS: 36415; 80048; 80076; 80329; 85025; 87081; 99285; A4606; G0480 ×2; Z7610

== ENCOUNTER 2017-07-07 12:32 | Inpatient (IN) | payer MEDICAID ==
[2017-07-06 20:00] VITALS: BP 203/105
[~2017-07-07] VITALS: Ht 165.1 cm; Wt 71.2 kg
[~2017-07-07 12:32] MED LIST changes: -ASPI-1152 PO; -CHOL100044 PO; +DOXA4TAB3 PO; -FOLI0.8T2 PO; +MINO2.5T PO; +NIFE90TA2 PO; +VALS160T29 PO
--- NOTE | 2017-07-07 13:05 | NUR ---
PRESENTS TO ER C/O BLOOD IN STOOL DURING BM YESTERDAY. PATIENT IS A/OX 4, BREATHING EVEN AND UNLABORED. NO SOB, NAD. PATIENT IS HYPERTENSIVE, BUT STATING HE'S MISSED DIALYSIS. SAFETY AND COMFORT MEASURES IN PLACE. AWAITING MD ORDERS.
--- NOTE | 2017-07-07 13:25 | NUR ---
NEW IV STARTED ON RAC, 20G. BLOOD DRAWN AND SENT TO LAB.
--- NOTE | 2017-07-07 13:26 | NUR ---
AT BEDSIDE FOR RECTAL EXAM.
[2017-07-07 13:31] LABS: BASOPHILS % (AUTO) 0.4 % (0.0-2.0); EOSINOPHILS % (AUTO) 1.7 % (0.0-6.0); HEMATOCRIT 30 % (39-51); HEMOGLOBIN 9.8 g/dL (13.5-17.5); LYMPHOCYTES # (AUTO) 0.5 /CMM (0.8-4.8); LYMPHOCYTES % (AUTO) 8.2 % (20.0-44.0); MEAN CORPUSCULAR HGB CONC 32 g/dl (31.0-36.0); MEAN CORPUSCULAR VOLUME 81 fL (80-96); MONOCYTES # (AUTO) 0.5 /CMM (0.1-1.30); NEUTROPHILS # (AUTO) 5.4 /CMM (1.8-8.9); NEUTROPHILS % (AUTO) 81.7 % (43.0-81.0); PLATELET COUNT (AUTO) 215 /CMM (150-450); RDW COEFFICIENT OF VARIATION 19.3 (11.5-15.0); RED BLOOD CELL COUNT(AUTO) 3.72 MIL/uL (4.5-6.0); WHITE BLOOD COUNT (AUTO) 6.5 K/uL (4.3-11.0)
[2017-07-07 13:45] LABS: CALCIUM, SERUM 9.9 mg/dL (8.5-10.1); POTASSIUM 4.6 mmol/L (3.5-5.1)
[2017-07-07 13:46] LABS: INR 1.14 (0.85-1.15)
[2017-07-07 13:47] LABS: CREATININE 14.7 mg/dL (0.6-1.3)
[2017-07-07 13:51] LABS: TROPONIN I 0.073 ng/mL (0.00-0.056)
[2017-07-07] MEDS ORDERED: LABETALOL HCL IV 100MG VIAL ONE (13:55)
[2017-07-07] MEDS ORDERED: LABETALOL HCL IV 100MG VIAL IV ONE (14:00)
--- NOTE | 2017-07-07 14:00 | NUR ---
PATIENT MEDICATED PER MD ORDERS.
[2017-07-07] MEDS ORDERED: CLOP75TA15 PO (14:35)
--- NOTE | 2017-07-07 14:57 | NUR ---
CROSSBAR SWITCH ADJUSTER, SYL DSOUZA NOTIFIED OF PATIENT'S HIGH BP. SYL ORDERED 10MG HYDRALAZINE IV. ORDER PLACED, WILL ADMINISTER.
[2017-07-07] MEDS ORDERED: hydrALAZINE HCL IV 20 MG VIAL ONE (14:58)
[2017-07-07] MEDS ORDERED: hydrALAZINE HCL IV 20 MG VIAL IV ONE (15:00)
--- NOTE | 2017-07-07 17:36 | NUR ---
REPORT GIVEN TO JOLENE KAM FOR VANESSA UPON ADMISSION.
--- NOTE | 2017-07-07 18:00 | NUR ---
PATIENT TRANSPORTED TO [facility] VIA ACLS PROTOCOL. RNJOLENE TO PROVIDE VANESSA.
--- NOTE | 2017-07-07 18:20 | NUR ---
ARNAV RN NOTES RECEIVED PT FROM EMERGENCY ROOM WITH DIAGNOSIS OF GI BLEED. UNDER THE CARE OF DR POOL. A&O X3. ON TELE MONITOR NSR HR 89. HOSPITAL ORIENTATION DONE. VS TAKEN. PER DR BRAD GLASER TO DO DIALYSIS. DIALYSIS NURSE AT BEDSIDE DOING DIALYSIS AT THIS TIME. ALL NEEDS ATTENDED. BELONGINGS CHECKED. CALLED DR POOL FOR ADMISSION ORDERS. NPO EXCEPT FOR MEDS. NEW ADMISSION ORDERS GIVEN. BED IN LOW POSITION, LOCKED. CALL LIGHT WITHIN REACH. PLAN OF CARE DISCUSSED WITH PATIENT. AT BEDSIDE.
[2017-07-07] MEDS ORDERED: ONDANSETRON HCL/PF 4 MG/2 ML VIAL IV PRN (18:30)
[2017-07-07] MEDS ORDERED: IV D5/0.45 NACL 1,000 ML IV SCH (18:30)
[2017-07-07] MEDS ORDERED: CLONIDINE HCL 0.1 MG TABLET PO PRN (18:30)
[2017-07-07] MEDS ORDERED: ACETAMINOPHEN 325 MG TABLET PO PRN (18:30)
[2017-07-07] MEDS ORDERED: ZOLPIDEM TARTRATE 10 MG TABLET PO PRN (18:30)
[2017-07-07] MEDS ORDERED: IV D5/0.45 NACL 1,000 ML IV PRN (18:34)
[2017-07-07 18:38] VITALS: BP 207/106
[2017-07-07] MEDS: PANTOPRAZOLE 40 MG VIAL IV SCH (18:50)
[2017-07-07] MEDS ORDERED: ZOLPIDEM TARTRATE 5 MG TABLET PO PRN (19:00)
--- NOTE | 2017-07-07 20:59 | NUR ---
RN NOTE PATIENT IS NPO EXCEPT MEDS, PATIENT REQUESTED FOOD, EXPLAINED PATIENT RG NPO STATUS, HOWEVER PATIENT STATED "I AM HUNGRY AND I WILL EAT ANYWAY". EXPLAINED ALL RISKS AND BENEFITS, PATIENT VERBALIZED UNDERSTANDING BUT STILL REQUESTED FOOD, PAGED DR POOL AT , AWAITING FOR CALL BACK, CHARGE NURSE TRUDY IS AWARE
[2017-07-07] MEDS: CARVEDILOL 12.5 MG TABLET PO SCH (21:05)
[2017-07-07] MEDS: VALSARTAN 80 MG TABLET PO SCH (21:06)
[2017-07-07 22:00] VITALS: BP 168/77
[2017-07-07] MEDS ORDERED: DOXAZOSIN MESYLATE (4 MG) 4 MG TABLET PO SCH (22:00)
[2017-07-07] MEDS ORDERED: ATORVASTATIN 10 MG TABLET PO SCH (22:00)
[2017-07-08] VITALS: BP 106/75
[2017-07-08 04:00] VITALS: BP 106/75
[2017-07-08 05:53] VITALS: BP 106/75
[2017-07-08 06:45] LABS: BASOPHILS % (AUTO) 0.7 % (0.0-2.0); EOSINOPHILS % (AUTO) 2.8 % (0.0-6.0); HEMATOCRIT 26 % (39-51); HEMOGLOBIN 8.5 g/dL (13.5-17.5); LYMPHOCYTES # (AUTO) 0.5 /CMM (0.8-4.8); LYMPHOCYTES % (AUTO) 11.4 % (20.0-44.0); MEAN CORPUSCULAR HGB CONC 33 g/dl (31.0-36.0); MEAN CORPUSCULAR VOLUME 81 fL (80-96); MONOCYTES # (AUTO) 0.6 /CMM (0.1-1.30); MONOCYTES % (AUTO) 13.1 % (2.0-12.0); NEUTROPHILS # (AUTO) 3.6 /CMM (1.8-8.9); PLATELET COUNT (AUTO) 182 /CMM (150-450); RDW COEFFICIENT OF VARIATION 18.9 (11.5-15.0); RED BLOOD CELL COUNT(AUTO) 3.17 MIL/uL (4.5-6.0); WHITE BLOOD COUNT (AUTO) 4.8 K/uL (4.3-11.0)
--- NOTE | 2017-07-08 07:10 | NUR ---
RN INITIAL NOTES: REC'D PT AWAKE ON BED, NOT IN ANY DISTRESS, A/O X4, DENIES ANY PAIN BUT IS C/O AND SHOUTING TO THE STAFF RE: ASKING FOR HIS BREAKFAST. EXPLAINED TO HIM THAT HE NEEDS NPO D/T DIAGNOSIS. ON ROOM AIR, NO SOB. ON TELEMONITOR, SR. HAS LUE AV SHUNT, + THRILL/ BRUIT. HAS R AC G20, PL, PATENT & INTACT W/ NO S/SX OF INFECTION/INFILTRATION NOTED. PROVIDED COMFORT & SAFETY MEASURES. BED KEPT LOW & IN LOCKED POS. CALL LIGHT PLACED W/IN REACH. WILL CONT TO MONITOR & ATTEND PT NEEDS.
[2017-07-08 07:47] LABS: CALCIUM, SERUM 9.5 mg/dL (8.5-10.1); POTASSIUM 4.3 mmol/L (3.5-5.1)
[2017-07-08 07:51] LABS: CREATININE 11.3 mg/dL (0.6-1.3)
[2017-07-08 08:00] VITALS: BP 135/98
[2017-07-08] MEDS ORDERED: SEVELAMER CARBONATE 800 MG TABLET PO SCH (08:00)
--- NOTE | 2017-07-08 08:00 | NUR ---
RN NOTES: PT STILL ASKING FOR FOOD DESPITE OF EXPLAINING TO HIM THE NEED FOR HIM TO BE NPO. DR. POOL MADE AWARE W/ ORDERS TO KEEP PT NPO AT THIS TIME, NEED TO BE EVALUATED BY GI FIRST. FURTHER EXPLANATION WAS DONE TO THE PT, HOWEVER, HE VERBALIZED THAT "WHAT'S THE DIFFERENCE I ALREADY ATE MY FOOD THAT I HAVE LAST NIGHT." -- DR. POOL INFORMED ABOUT THIS.
[2017-07-08] MEDS ORDERED: NIFEdipine XL (30MG) 30 MG TAB PO SCH (09:00)
[2017-07-08] MEDS ORDERED: CLOPIDOGREL BISULFATE 75 MG TABLET PO SCH (09:00)
[2017-07-08] MEDS ORDERED: MINOXIDIL (2.5MG) 2.5 MG TABLET PO SCH (09:00)
--- NOTE | 2017-07-08 09:00 | NUR ---
RN NOTES: DR. POOL S/E PT W/ ORDERS MAY DC PT TO HOME TODAY. DID LISSET TO THE PT AT BEDSIDE.
[2017-07-08] MEDS: CARVEDILOL 12.5 MG TABLET PO SCH (09:13)
[2017-07-08 09:14] VITALS: BP 135/98
[2017-07-08] MEDS: VALSARTAN 80 MG TABLET PO SCH (09:14)
[2017-07-08] MEDS: PANTOPRAZOLE 40 MG VIAL IV SCH (09:14)
--- NOTE | 2017-07-08 10:00 | NUR ---
COTTON FACTOR NOTES: PT DC'D TO HOME, SELF CARE ORDERED. DC DOCUMENT EXPLAINED & PROVIDED TO THE PT & W/ VERBALIZATION OF UNDERSTANDING. PT REMAINS A/O X 4. IV LINE ACCESS REMOVED, PRESSURE DRESSING APPLIED. PT SAID THAT HE HAD BM X1 WHILE IN THE UNIT BUT WASN'T ABLE TO CHECK IF THERE IS BLOOD IN HIS STOOL. ALL BELONGINGS SENT W/ PT, NOTHING IS MISSING. ALL DC DOCUMENTS SIGNED BY PT. PT LEFT IN STABLE CONDITION, AMBULATORY, ACCOMPANIED BY HIS . NO CONCERNS IDENTIFIED AT THE TIME OF DC.
== END 2017-07-08 10:19 | disposition home or self-care (01) | DRG 254 ==
LOC: ER 12:33 → TELE1 17:40 → TELE-TD 17:50
PROVIDERS: ADMIT Internal Medicine; ATTEND Internal Medicine
PROC: 5A1D70Z Performance of Urinary Filtration, Intermittent, Less than 6 Hours Per Day (ICD-10-PCS; principal; 2017-07-07)
DX: K64.4 Residual hemorrhoidal skin tags (principal); I21.A1 Myocardial infarction type 2; I12.0 Hypertensive chronic kidney disease with stage 5 chronic kidney disease or end stage renal disease; N18.6 End stage renal disease; I25.10 Atherosclerotic heart disease of native coronary artery without angina pectoris; Z99.2 Dependence on renal dialysis; Z95.5 Presence of coronary angioplasty implant and graft; Z85.820 Personal history of malignant melanoma of skin; Z85.51 Personal history of malignant neoplasm of bladder; Z85.46 Personal history of malignant neoplasm of prostate; Z83.3 Family history of diabetes mellitus; Z82.49 Family history of ischemic heart disease and other diseases of the circulatory system; E78.5 Hyperlipidemia, unspecified; D64.9 Anemia, unspecified; F17.200 Nicotine dependence, unspecified, uncomplicated; Z79.899 Other long term (current) drug therapy; K92.1 Melena; M85.9 Disorder of bone density and structure, unspecified; K64.9 Unspecified hemorrhoids; K21.9 Gastro-esophageal reflux disease without esophagitis
CPT/HCPCS: 36415; 71045-TC; 80048-TC; 84484-TC; 85025-TC; 85730-TC; 87081-TC; 90935-TC; A4606; C9113; J0360; J3490; Z7610